=== PATIENT | female | born 1950 | race Caucasian/White ===

== ENCOUNTER → 2017-05-21 | Outpatient (CLI) | payer MEDICARE ==
--- NOTE | 2017-05-21 15:18 | RAD ---
DATE: 05/21/2017 EXAM: MAMMO NELSON SCREENING BILATERAL HISTORY: Routine screening COMPARISON: 02/06/2016 This study was interpreted with the benefit of Computerized Aided Detection (CAD). FINDINGS: Breast Density: SCATTERED The breast parenchyma shows scattered fibroglandular densities. Breast parenchyma level B. There are no dominant suspicious masses, suspicious microcalcifications or evidence of architectural distortion. IMPRESSION: Negative mammogram BI-RADS CATEGORY: 1 NEGATIVE RECOMMENDED FOLLOW-UP: 12M 12 MONTH FOLLOW-UP PQRS compliance statement: Patient information was entered into a reminder system with a target due date 05/21/2018 for the next mammogram. Mammography is a sensitive method for finding small breast cancers, but it does not detect them all and is not a substitute for careful clinical examination. A negative mammogram does not negate a clinically suspicious finding and should not result in delay in biopsying a clinically suspicious abnormality. "Our facility is accredited by the [employer] Mammography [employer]."
== END | disposition home or self-care (01) ==
LOC: MAMMO 09:21
PROVIDERS: ATTEND Nurse Practitioner Family
DX: Z12.31 Encounter for screening mammogram for malignant neoplasm of breast (principal)
CPT/HCPCS: 77063; G0202; 77067

== ENCOUNTER → 2018-04-07 | Outpatient (CLI) | payer MEDICARE ==
--- NOTE | 2018-04-07 14:40 | RAD ---
Lateral lower extremity superficial venous ultrasound for venous insufficiency, intermittent bilateral lower extremity swelling, left greater than right. TECHNIQUE AND FINDINGS: The right greater saphenous and lesser saphenous veins are patent and compressible. The origin of the right greater saphenous vein measures 9.5 mm. With Valsalva, there is 1.1 seconds of reflux in the proximal right greater saphenous vein. The right greater saphenous vein rapidly tapers to a diameter of 3 mm, and no reflux is seen at any of the remainder of the greater saphenous vein. The right lesser saphenous vein has a diameter of 2 mm proximally, and is normal with no evidence of venous insufficiency. The left greater saphenous vein measures 4 mm proximally and is notable for 0.3 seconds of reflux with Valsalva proximally, and no evidence of reflux throughout the remainder of its distribution. The left lesser saphenous vein has a diameter of 2 mm with no evidence of reflux. IMPRESSION: 1. Dilated proximal right greater saphenous vein with a diameter of 9 mm and reflux of 1.1 seconds. Electronically signed by: Stephen Wiggins MD (04/07/2018 2:37 PM) [id number]
== END | disposition home or self-care (01) ==
LOC: US 08:39
PROVIDERS: ATTEND Neuromusculoskeletal Medicine & OMM
DX: M79.89 Other specified soft tissue disorders (principal)
CPT/HCPCS: 93970

== ENCOUNTER → 2018-06-02 | Outpatient (CLI) | payer MEDICARE ==
--- NOTE | 2018-06-02 14:09 | CARD ---
MR#: [id number] Date of Study: 06/02/2018 Ordering Physician: UYEN FOWLER, Referring Physician: UYEN FOWLER Tech: Ora Nava RDCS APPROVED REPORT EXAM: Two-dimensional and M-mode echocardiogram with Doppler and color Doppler. Other Information Quality : Good INDICATION Peripheral Edema 2D DIMENSIONS RVDd2.5 (2.9-3.5cm)Left Atrium(2D)3.2 (1.6-4.0cm) IVSd1.1 (0.7-1.1cm)Aortic Root(2D)3.0 (2.0-3.7cm) LVDd5.3 (3.9-5.9cm)LVOT Diameter2.1 (1.8-2.4cm) PWd1.1 (0.7-1.1cm)LVDs3.3 (2.5-4.0cm) FS (%) 30.0 %SV90.2 ml LVEF(%)60.0 (>50%) Aortic Valve AoV Peak Lamine.166.7cm/sAoV VTI31.5cm AO Peak GR.11.1mmHgLVOT Peak Lamine.136.2cm/s LVOT VTI 28.90cmAO Mean GR.6mmHg TENZIN (VMAX)2.52kv0ZVL (VTI)3.19cm2 Mitral Valve MV E Ywnwgbgv77.5cm/sMV DECEL PRYI395ue MV A Wbeutoff890.4cm/sE/A Ratio0.9 Tricuspid Valve TR P. Rqglytlb473ry/sRAP LOSSXIXG3rrQb TR Peak Gr.56plPrLWRF13wrQl Pulmonary Vein S1 Fhpreeal17.4cm/sD2 Ezsrmjrb63.7cm/s LEFT VENTRICLE The left ventricle is normal size. There is normal left ventricular wall thickness. The left ventricu lar systolic function is normal. The Ejection Fraction is 55-60%. There is normal LV segmental wall m otion. RIGHT VENTRICLE The right ventricle is normal size. The right ventricular systolic function is normal. ATRIA The left atrium size is normal. The right atrium size is normal. The interatrial septum is intact wit h no evidence for an atrial septal defect or patent foramen ovale as noted on 2-D or Doppler imaging. AORTIC VALVE The aortic valve is calcified but opens well. Doppler and Color Flow revealed no significant aortic r egurgitation. There is no significant aortic valvular stenosis. MITRAL VALVE The mitral valve is normal in structure and function. There is no evidence of mitral valve prolapse. There is no mitral valve stenosis. Doppler and Color-flow revealed trace mitral regurgitation. TRICUSPID VALVE The tricuspid valve is normal in structure and function. Doppler and Color Flow revealed mild tricusp id regurgitation. The PA pressure was estimated at 38 mmHg. There is no tricuspid valve stenosis. PULMONIC VALVE The pulmonic valve is not well visualized. Doppler and Color Flow revealed mild pulmonic valvular reg urgitation. There is no pulmonic valvular stenosis. GREAT VESSELS The aortic root is normal in size. The ascending aorta is normal in size. The IVC is normal in size a nd collapses >50% with inspiration. PERICARDIAL EFFUSION There is no evidence of significant pericardial effusion. Critical Notification Critical Value: No <Conclusion> The left ventricular systolic function is normal. The Ejection Fraction is 55-60%. There is normal LV segmental wall motion. Trace mitral regurgitation. Mild tricuspid regurgitation. The PA pressure was estimated at 38 mmHg. There is no evidence of significant pericardial effusion. Signed by : Uyen Fowler, Electronically Approved : 06/02/2018 14:07:56
== END | disposition home or self-care (01) ==
LOC: ECHO 13:03
PROVIDERS: ATTEND Internal Medicine Cardiovascular Disease
DX: I07.1 Rheumatic tricuspid insufficiency (principal)
CPT/HCPCS: 93306

== ENCOUNTER → 2018-07-30 | Outpatient (CLI) | payer MEDICARE ==
[~2018-07-30] MED LIST: LEVO75TA5 PO; VENL37.5 PO
--- NOTE | 2018-07-30 12:30 | RAD ---
DATE: 07/30/2018 EXAM: MAMMO NELSON SCREENING BILATERAL HISTORY: Routine screening COMPARISON: 05/21/2017 This study was interpreted with the benefit of Computerized Aided Detection (CAD). Breast Density: SCATTERED The breast parenchyma shows scattered fibroglandular densities. Breast parenchyma level B. FINDINGS: 2-D and 3-D tomosynthesis imaging was performed in CC and MLO projections. No new or enlarging breast densities are seen. Benign type calcifications are again noted. No suspicious microcalcifications have developed. IMPRESSION: There is no mammographic evidence of malignancy either breast. BI-RADS CATEGORY: 2 BENIGN FINDING(S) RECOMMENDED FOLLOW-UP: 12M 12 MONTH FOLLOW-UP PQRS compliance statement: Patient information was entered into a reminder system with a target due date for the next mammogram. Mammography is a sensitive method for finding small breast cancers, but it does not detect them all and is not a substitute for careful clinical examination. A negative mammogram does not negate a clinically suspicious finding and should not result in delay in biopsying a clinically suspicious abnormality. "Our facility is accredited by the [employer] Mammography [employer]."
== END | disposition home or self-care (01) ==
LOC: MAMMO 09:38
PROVIDERS: ATTEND Registered Nurse
DX: Z12.31 Encounter for screening mammogram for malignant neoplasm of breast (principal)
CPT/HCPCS: 77063; 77067

== ENCOUNTER 2018-08-05 19:45 | Inpatient (IN) | payer MEDICARE ==
[~2018-08-05] VITALS: Ht 177.8 cm; Wt 110.0 kg
[2018-08-05] MEDS ORDERED: IV RINGERS SOLUTION,LACTATED 1,000 ML IV SCH (19:51)
--- NOTE | 2018-08-05 19:51 | ED.ADGEN ---
Past History Past Medical History: GERD Adult General Chief Complaint Chief Complaint ".. I'm having a lot of epigastric and right upper quadrant pain.... It is quite severe,.... I'm having some nausea. I have had a EGD they did not find any findings of gastritis or ulcer or significant reflux... But the pain is much worse tonight..." HPI HPI Patient is a 68 year old female who presents with above hx with complaints of, nausea, epigastric and right upper abdomen and flank pain. Patient has been having stools and passing gas. No recent history of bad food. No hx of renal stones. No history of trauma. No history immunosuppression. No history of travel. Patient has had complaints of GERD in past. Pt. did have a EDG by Dr. Schmidt with no significant pathology found. Patient's family does have a history of biliary stones with mother. Patient denies any family history or personal history of colitis. Patient has had a previous colonoscopy which was reportedly normal. Patient has had a laparotomy for infertility issues. Patient did have issues with irritable bowel problems at age 20. Patient last ate small meal at dinner. Patient normally follows with . Review of Systems Review of Systems Constitutional: Denies fever or chills [] Eyes: Denies change in visual acuity, redness, or eye pain [] HENT: Denies nasal congestion or sore throat [] Respiratory: Denies cough or shortness of breath [] Cardiovascular: No additional information not addressed in HPI [] GI: Epigastric and right upper quadrant abdominal pain,. Denies nausea, vomiting, bloody stools or diarrhea [] : Denies dysuria or hematuria [] Musculoskeletal: Denies back pain or joint pain [] Integument: Denies rash or skin lesions [] Neurologic: Denies headache, focal weakness or sensory changes [] Endocrine: Denies polyuria or polydipsia [] All other systems were reviewed and found to be within normal limits, except as documented in this note. Family History Family History Noncontributory Current Medications Current Medications Current Medications Medications (Trade) Dose Ordered Sig/Ezio Start Time Stop Time Status Last Admin Dose Admin Diphenhydramine HCl (Benadryl) 50 mg 1X ONCE 08/05/18 23:00 08/05/18 23:01 DC 08/05/18 23:21 50 MG Famotidine (Pepcid Vial) 20 mg 1X ONCE 08/05/18 20:50 08/05/18 20:51 DC 08/05/18 20:04 20 MG Info (Do NOT chart on this entry -- for MONITORING) 1 each PRN DAILY PRN 08/05/18 22:30 08/07/18 22:29 Iohexol (Omnipaque 240 Mg/ml) 50 ml 1X ONCE 08/05/18 22:30 08/05/18 22:31 DC 08/06/18 00:45 50 ML Iohexol (Omnipaque 300 Mg/ml) 75 ml 1X ONCE 08/05/18 22:30 08/05/18 22:31 DC Lactated Ringer's 1,000 ml @ 100 mls/hr Q10H 08/05/18 19:51 08/06/18 05:50 08/05/18 20:00 100 MLS/HR Magnesium Hydroxide (Milk Of Magnesia) 2,400 mg 1X ONCE 08/05/18 22:00 08/05/18 22:01 DC 08/05/18 23:17 2,400 MG Methylprednisolone Sodium Succinate (SOLU-Medrol 125MG VIAL) 125 mg 1X ONCE 08/05/18 23:00 08/05/18 23:01 DC 08/05/18 23:22 125 MG Morphine Sulfate (Morphine 10mg Syringe) 10 mg 1X ONCE 08/05/18 21:30 08/05/18 21:31 DC 08/05/18 21:39 10 MG Ondansetron HCl (Zofran) 8 mg 1X ONCE 08/05/18 20:50 08/05/18 20:51 DC 08/05/18 20:02 8 MG Allergies Allergies Allergies Coded Allergies Type Severity Reaction Last Updated Verified Iodine and Iodide Containing Produc Allergy Intermediate 08/05/18 Yes Physical Exam Physical Exam Constitutional: Moderately acute distress, non-toxic appearance. [] HENT: Normocephalic, atraumatic, bilateral external ears normal, oropharynx moist, no oral exudates, nose normal. [] Eyes: PERRLA, EOMI, conjunctiva normal, no discharge. [] Neck: Normal range of motion, no tenderness, supple, no stridor. [] Cardiovascular:Heart rate regular rhythm, no murmur [] Lungs & Thorax: Bilateral breath sounds clear to auscultation [] Abdomen: Bowel sounds normal, soft, epigastrium &right upper quadrant tenderness , no masses, distended, no pulsatile masses. [] Rebound to right upper quadrant. Patient declines rectal exam this time. Skin: Warm, dry, no erythema, no rash. [] Back: No tenderness, no CVA tenderness. [] Extremities: No tenderness, no cyanosis, no clubbing, ROM intact, no edema. [] No psoas sign or heeltap Neurologic: Alert and oriented X 3, normal motor function, normal sensory function, no focal deficits noted. [] Psychologic: Affect anxious, judgement normal, mood normal. [] Current Patient Data Vital Signs Vital Signs Date Time Temp Pulse Resp B/P (MAP) Pulse Ox O2 Delivery O2 Flow Rate FiO2 08/06/18 01:27 71 16 147/78 (101) 95 Room Air 08/05/18 20:10 98.3 Lab Results Laboratory Tests Test 08/05/18 20:20 08/05/18 21:20 White Blood Count 7.3 x10^3/uL (4.0-11.0) Red Blood Count 4.63 x10^6/uL (3.50-5.40) Hemoglobin 13.9 g/dL (12.0-15.5) Hematocrit 41.1 % (36.0-47.0) Mean Corpuscular Volume 89 fL (79-100) Mean Corpuscular Hemoglobin 30 pg (25-35) Mean Corpuscular Hemoglobin Concent 34 g/dL (31-37) Red Cell Distribution Width 13.7 % (11.5-14.5) Platelet Count 229 x10^3/uL (140-400) Neutrophils (%) (Auto) 72 % (31-73) Lymphocytes (%) (Auto) 17 % (24-48) L Monocytes (%) (Auto) 7 % (0-9) Eosinophils (%) (Auto) 2 % (0-3) Basophils (%) (Auto) 1 % (0-3) Neutrophils # (Auto) 5.3 x10^3uL (1.8-7.7) Lymphocytes # (Auto) 1.3 x10^3/uL (1.0-4.8) Monocytes # (Auto) 0.5 x10^3/uL (0.0-1.1) Eosinophils # (Auto) 0.2 x10^3/uL (0.0-0.7) Basophils # (Auto) 0.1 x10^3/uL (0.0-0.2) Prothrombin Time 9.3 SEC (9.4-11.4) L Prothrombin Time INR 0.9 (0.9-1.1) PTT 24 SEC (23-33) D-Dimer (Kristy) 0.85 mg/L (0.00-0.50) H Sodium Level 139 mmol/L (136-145) Potassium Level 4.0 mmol/L (3.5-5.1) Chloride Level 103 mmol/L (98-107) Carbon Dioxide Level 26 mmol/L (21-32) Anion Gap 10 (6-14) Blood Urea Nitrogen 17 mg/dL (7-20) Creatinine 1.0 mg/dL (0.6-1.0) Estimated GFR (Cockcroft-Gault) 55.1 Glucose Level 109 mg/dL (70-99) H Calcium Level 8.9 mg/dL (8.5-10.1) Magnesium Level 1.9 mg/dL (1.8-2.4) Total Bilirubin 0.7 mg/dL (0.2-1.0) Direct Bilirubin 0.1 mg/dL (0.0-0.2) Aspartate Amino Transferase (AST) 19 U/L (15-37) Alanine Aminotransferase (ALT) 22 U/L (14-59) Alkaline Phosphatase 90 U/L (46-116) Creatine Kinase 92 U/L (26-192) Troponin I Quantitative < 0.017 ng/mL (0-0.055) LW-Kzm-L-Type Natriuretic Peptide 145 pg/mL (0-124) H Total Protein 7.1 g/dL (6.4-8.2) Albumin 3.7 g/dL (3.4-5.0) Amylase Level 47 U/L (25-115) Lipase 154 U/L (73-393) Urine Collection Type Unknown Urine Color Straw Urine Clarity Clear Urine pH 8.0 Urine Specific [place] 1.015 Urine Protein Neg (NEG-TRACE) Urine Glucose (UA) Neg mg/dL (NEG) Urine Ketones (Stick) Neg mg/dL (NEG) Urine Blood Neg (NEG) Urine Nitrite Neg (NEG) Urine Bilirubin Neg (NEG) Urine Urobilinogen Dipstick 0.2 mg/dL (0.2 mg/dL) Urine Leukocyte Esterase Neg (NEG) Urine RBC 0 /HPF (0-2) Urine WBC Occ /HPF (0-4) Urine Squamous Epithelial Cells Occ /LPF Urine Bacteria Few /HPF (0-FEW) Urine Opiates Screen Neg (NEG) Urine Methadone Screen Neg (NEG) Urine Barbiturates Neg (NEG) Urine Phencyclidine Screen Neg (NEG) Urine Amphetamine/Methamphetamine Neg (NEG) Urine Benzodiazepines Screen Neg (NEG) Urine Cocaine Screen Neg (NEG) Urine Cannabinoids Screen Neg (NEG) Urine Ethyl Alcohol Neg (NEG) EKG EKG My interpretation of EKG shows a sinus rhythm at 89 bpm. Left axis. No findings acute STEMI of contralateral changes. [] Radiology/Procedures Radiology/Procedures My interpretation acute abdomen film shows no acute cardiopulmonary findings. No free air in the diaphragm. There is increased stool burden. There are a few isolated loops of small bowel. Does have scoliosis of lumbar spine. CT findings show distended bladder. Renal stones. There are mildly dilated loops of small bowel on the left with distal decompression consistent with possible early partial small bowel obstruction see formal report when available. [] Course & Med Decision Making Course & Med Decision Making Pertinent Labs and Imaging studies reviewed. (See chart for details) Pt. Admitted to Dr. Howell for further tx and evaluation. Will obtain biliary study- . NPO status for possible Small Bowel Obstruction. [] Final Impression Final Impression 1. Abdomen Pain[] 2.Partial small bowel obstruction 3. Biliary colic 4. Constipation 5. Elevated d-dimer 0.85 Dragon Disclaimer Dragon Disclaimer This electronic medical record was generated, in whole or in part, using a voice recognition dictation system. Dragon Disclaimer This chart was dictated in whole or in part using Voice Recognition software in a busy, high-work load, and often noisy Emergency Department environment. It may contain unintended and wholly unrecognized errors or omissions. Dragon Disclaimer This chart was dictated in whole or in part using Voice Recognition software in a busy, high-work load, and often noisy Emergency Department environment. It may contain unintended and wholly unrecognized errors or omissions. Discharge Summary Visit Information Final Diagnosis Problems Medical Problems: (1) Pain in the abdomen Status: Acute Brief Hospital Course Allergies Allergies Coded Allergies Type Severity Reaction Last Updated Verified Iodine and Iodide Containing Produc Allergy Intermediate 08/05/18 Yes Vital Signs Vital Signs Date Time Temp Pulse Resp B/P (MAP) Pulse Ox O2 Delivery O2 Flow Rate FiO2 08/06/18 01:27 71 16 147/78 (101) 95 Room Air 08/05/18 20:10 98.3 Lab Results Laboratory Tests Test 08/05/18 20:20 08/05/18 21:20 White Blood Count 7.3 x10^3/uL (4.0-11.0) Red Blood Count 4.63 x10^6/uL (3.50-5.40) Hemoglobin 13.9 g/dL (12.0-15.5) Hematocrit 41.1 % (36.0-47.0) Mean Corpuscular Volume 89 fL (79-100) Mean Corpuscular Hemoglobin 30 pg (25-35) Mean Corpuscular Hemoglobin Concent 34 g/dL (31-37) Red Cell Distribution Width 13.7 % (11.5-14.5) Platelet Count 229 x10^3/uL (140-400) Neutrophils (%) (Auto) 72 % (31-73) Lymphocytes (%) (Auto) 17 % (24-48) Monocytes (%) (Auto) 7 % (0-9) Eosinophils (%) (Auto) 2 % (0-3) Basophils (%) (Auto) 1 % (0-3) Neutrophils # (Auto) 5.3 x10^3uL (1.8-7.7) Lymphocytes # (Auto) 1.3 x10^3/uL (1.0-4.8) Monocytes # (Auto) 0.5 x10^3/uL (0.0-1.1) Eosinophils # (Auto) 0.2 x10^3/uL (0.0-0.7) Basophils # (Auto) 0.1 x10^3/uL (0.0-0.2) Prothrombin Time 9.3 SEC (9.4-11.4) Prothromb Time International Ratio 0.9 (0.9-1.1) Activated Partial Thromboplast Time 24 SEC (23-33) D-Dimer (Kristy) 0.85 mg/L (0.00-0.50) Sodium Level 139 mmol/L (136-145) Potassium Level 4.0 mmol/L (3.5-5.1) Chloride Level 103 mmol/L (98-107) Carbon Dioxide Level 26 mmol/L (21-32) Anion Gap 10 (6-14) Blood Urea Nitrogen 17 mg/dL (7-20) Creatinine 1.0 mg/dL (0.6-1.0) Estimated GFR (Cockcroft-Gault) 55.1 Glucose Level 109 mg/dL (70-99) Calcium Level 8.9 mg/dL (8.5-10.1) Magnesium Level 1.9 mg/dL (1.8-2.4) Total Bilirubin 0.7 mg/dL (0.2-1.0) Direct Bilirubin 0.1 mg/dL (0.0-0.2) Aspartate Amino Transf (AST/SGOT) 19 U/L (15-37) Alanine Aminotransferase (ALT/SGPT) 22 U/L (14-59) Alkaline Phosphatase 90 U/L (46-116) Creatine Kinase 92 U/L (26-192) Troponin I Quantitative < 0.017 ng/mL (0-0.055) XW-Hut-Z-Type Natriuretic Peptide 145 pg/mL (0-124) Total Protein 7.1 g/dL (6.4-8.2) Albumin 3.7 g/dL (3.4-5.0) Amylase Level 47 U/L (25-115) Lipase 154 U/L (73-393) Urine Collection Type Unknown Urine Color Straw Urine Clarity Clear Urine pH 8.0 Urine Specific [place] 1.015 Urine Protein Neg (NEG-TRACE) Urine Glucose (UA) Neg mg/dL (NEG) Urine Ketones (Stick) Neg mg/dL (NEG) Urine Blood Neg (NEG) Urine Nitrite Neg (NEG) Urine Bilirubin Neg (NEG) Urine Urobilinogen Dipstick 0.2 mg/dL (0.2 mg/dL) Urine Leukocyte Esterase Neg (NEG) Urine RBC 0 /HPF (0-2) Urine WBC Occ /HPF (0-4) Urine Squamous Epithelial Cells Occ /LPF Urine Bacteria Few /HPF (0-FEW) Urine Opiates Screen Neg (NEG) Urine Methadone Screen Neg (NEG) Urine Barbiturates Neg (NEG) Urine Phencyclidine Screen Neg (NEG) Urine Amphetamine/Methamphetamine Neg (NEG) Urine Benzodiazepines Screen Neg (NEG) Urine Cocaine Screen Neg (NEG) Urine Cannabinoids Screen Neg (NEG) Urine Ethyl Alcohol Neg (NEG) Brief Hospital Course Ms. Lujan is a 68 old female with Rt. upper quadrant pain. Admit possible Small Bowel Obstruction. Admitted Dr. Howell. Discharge Information Condition at Discharge: Improved, Stable Dischare Medications Current Medications Lactated Ringer's 1,000 ml @ 100 mls/hr Q10H IV Last administered on at 20:00; Admin Dose 100 MLS/HR; Start 08/05/18 at 19:51; Stop 08/06/18 at 05: 50 Ondansetron HCl (Zofran) 8 mg 1X ONCE IV Last administered on 08/05/18at 20:02 ; Admin Dose 8 MG; Start 08/05/18 at 20:50; Stop 08/05/18 at 20:51; Status DC Famotidine (Pepcid Vial) 20 mg 1X ONCE IVP Last administered on 08/05/18at 20: 04; Admin Dose 20 MG; Start 08/05/18 at 20:50; Stop 08/05/18 at 20:51; Status DC Morphine Sulfate (Morphine 10mg Syringe) 10 mg 1X ONCE SQ Last administered on 08/05/18at 21:39; Admin Dose 10 MG; Start 08/05/18 at 21:30; Stop 08/05/18 at 21:31; Status DC Magnesium Hydroxide (Milk Of Magnesia) 2,400 mg 1X ONCE PO Last administered on 08/05/18at 23:17; Admin Dose 2,400 MG; Start 08/05/18 at 22:00; Stop 08/05/18 at 22:01; Status DC Iohexol (Omnipaque 240 Mg/ml) 50 ml STK-MED ONCE .ROUTE ; Start 08/05/18 at 22: 17; Stop 08/05/18 at 22:18; Status DC Iohexol (Omnipaque 300 Mg/ml) 75 ml 1X ONCE IV ; Start 08/05/18 at 22:30; Stop 08/05/18 at 22:31; Status DC Iohexol (Omnipaque 240 Mg/ml) 50 ml 1X ONCE PO Last administered on 08/06/18at 00:45; Admin Dose 50 ML; Start 08/05/18 at 22:30; Stop 08/05/18 at 22:31; Status DC Info (Do NOT chart on this entry -- for MONITORING) 1 each PRN DAILY PRN MC SEE COMMENTS; Start 08/05/18 at 22:30; Stop 08/07/18 at 22:29 Methylprednisolone Sodium Succinate (SOLU-Medrol 125MG VIAL) 125 mg 1X ONCE IV Last administered on 08/05/18at 23:22; Admin Dose 125 MG; Start 08/05/18 at 23: 00; Stop 08/05/18 at 23:01; Status DC Diphenhydramine HCl (Benadryl) 50 mg 1X ONCE IVP Last administered on at 23:21; Admin Dose 50 MG; Start 08/05/18 at 23:00; Stop 08/05/18 at 23:01; Status DC Discharge Summary Visit Information Final Diagnosis Problems Medical Problems: (1) Pain in the abdomen Status: Acute Brief Hospital Course Allergies Allergies Coded Allergies Type Severity Reaction Last Updated Verified Iodine and Iodide Containing Produc Allergy Intermediate 08/05/18 Yes Vital Signs Vital Signs Date Time Temp Pulse Resp B/P (MAP) Pulse Ox O2 Delivery O2 Flow Rate FiO2 08/06/18 01:27 71 16 147/78 (101) 95 Room Air 08/05/18 20:10 98.3 Lab Results Laboratory Tests Test 08/05/18 20:20 08/05/18 21:20 White Blood Count 7.3 x10^3/uL (4.0-11.0) Red Blood Count 4.63 x10^6/uL (3.50-5.40) Hemoglobin 13.9 g/dL (12.0-15.5) Hematocrit 41.1 % (36.0-47.0) Mean Corpuscular Volume 89 fL (79-100) Mean Corpuscular Hemoglobin 30 pg (25-35) Mean Corpuscular Hemoglobin Concent 34 g/dL (31-37) Red Cell Distribution Width 13.7 % (11.5-14.5) Platelet Count 229 x10^3/uL (140-400) Neutrophils (%) (Auto) 72 % (31-73) Lymphocytes (%) (Auto) 17 % (24-48) Monocytes (%) (Auto) 7 % (0-9) Eosinophils (%) (Auto) 2 % (0-3) Basophils (%) (Auto) 1 % (0-3) Neutrophils # (Auto) 5.3 x10^3uL (1.8-7.7) Lymphocytes # (Auto) 1.3 x10^3/uL (1.0-4.8) Monocytes # (Auto) 0.5 x10^3/uL (0.0-1.1) Eosinophils # (Auto) 0.2 x10^3/uL (0.0-0.7) Basophils # (Auto) 0.1 x10^3/uL (0.0-0.2) Prothrombin Time 9.3 SEC (9.4-11.4) Prothromb Time International Ratio 0.9 (0.9-1.1) Activated Partial Thromboplast Time 24 SEC (23-33) D-Dimer (Kristy) 0.85 mg/L (0.00-0.50) Sodium Level 139 mmol/L (136-145) Potassium Level 4.0 mmol/L (3.5-5.1) Chloride Level 103 mmol/L (98-107) Carbon Dioxide Level 26 mmol/L (21-32) Anion Gap 10 (6-14) Blood Urea Nitrogen 17 mg/dL (7-20) Creatinine 1.0 mg/dL (0.6-1.0) Estimated GFR (Cockcroft-Gault) 55.1 Glucose Level 109 mg/dL (70-99) Calcium Level 8.9 mg/dL (8.5-10.1) Magnesium Level 1.9 mg/dL (1.8-2.4) Total Bilirubin 0.7 mg/dL (0.2-1.0) Direct Bilirubin 0.1 mg/dL (0.0-0.2) Aspartate Amino Transf (AST/SGOT) 19 U/L (15-37) Alanine Aminotransferase (ALT/SGPT) 22 U/L (14-59) Alkaline Phosphatase 90 U/L (46-116) Creatine Kinase 92 U/L (26-192) Troponin I Quantitative < 0.017 ng/mL (0-0.055) GT-Qme-R-Type Natriuretic Peptide 145 pg/mL (0-124) Total Protein 7.1 g/dL (6.4-8.2) Albumin 3.7 g/dL (3.4-5.0) Amylase Level 47 U/L (25-115) Lipase 154 U/L (73-393) Urine Collection Type Unknown Urine Color Straw Urine Clarity Clear Urine pH 8.0 Urine Specific [place] 1.015 Urine Protein Neg (NEG-TRACE) Urine Glucose (UA) Neg mg/dL (NEG) Urine Ketones (Stick) Neg mg/dL (NEG) Urine Blood Neg (NEG) Urine Nitrite Neg (NEG) Urine Bilirubin Neg (NEG) Urine Urobilinogen Dipstick 0.2 mg/dL (0.2 mg/dL) Urine Leukocyte Esterase Neg (NEG) Urine RBC 0 /HPF (0-2) Urine WBC Occ /HPF (0-4) Urine Squamous Epithelial Cells Occ /LPF Urine Bacteria Few /HPF (0-FEW) Urine Opiates Screen Neg (NEG) Urine Methadone Screen Neg (NEG) Urine Barbiturates Neg (NEG) Urine Phencyclidine Screen Neg (NEG) Urine Amphetamine/Methamphetamine Neg (NEG) Urine Benzodiazepines Screen Neg (NEG) Urine Cocaine Screen Neg (NEG) Urine Cannabinoids Screen Neg (NEG) Urine Ethyl Alcohol Neg (NEG) Brief Hospital Course Ms. Lujan is a 68 old [sex] who presented with [ ] Discharge Information Dischare Medications Current Medications Lactated Ringer's 1,000 ml @ 100 mls/hr Q10H IV Last administered on at 20:00; Admin Dose 100 MLS/HR; Start 08/05/18 at 19:51; Stop 08/06/18 at 05: 50 Ondansetron HCl (Zofran) 8 mg 1X ONCE IV Last administered on 08/05/18at 20:02 ; Admin Dose 8 MG; Start 08/05/18 at 20:50; Stop 08/05/18 at 20:51; Status DC Famotidine (Pepcid Vial) 20 mg 1X ONCE IVP Last administered on 08/05/18at 20: 04; Admin Dose 20 MG; Start 08/05/18 at 20:50; Stop 08/05/18 at 20:51; Status DC Morphine Sulfate (Morphine 10mg Syringe) 10 mg 1X ONCE SQ Last administered on 08/05/18at 21:39; Admin Dose 10 MG; Start 08/05/18 at 21:30; Stop 08/05/18 at 21:31; Status DC Magnesium Hydroxide (Milk Of Magnesia) 2,400 mg 1X ONCE PO Last administered on 08/05/18at 23:17; Admin Dose 2,400 MG; Start 08/05/18 at 22:00; Stop 08/05/18 at 22:01; Status DC Iohexol (Omnipaque 240 Mg/ml) 50 ml STK-MED ONCE .ROUTE ; Start 08/05/18 at 22: 17; Stop 08/05/18 at 22:18; Status DC Iohexol (Omnipaque 300 Mg/ml) 75 ml 1X ONCE IV ; Start 08/05/18 at 22:30; Stop 08/05/18 at 22:31; Status DC Iohexol (Omnipaque 240 Mg/ml) 50 ml 1X ONCE PO Last administered on 08/06/18at 00:45; Admin Dose 50 ML; Start 08/05/18 at 22:30; Stop 08/05/18 at 22:31; Status DC Info (Do NOT chart on this entry -- for MONITORING) 1 each PRN DAILY PRN MC SEE COMMENTS; Start 08/05/18 at 22:30; Stop 08/07/18 at 22:29 Methylprednisolone Sodium Succinate (SOLU-Medrol 125MG VIAL) 125 mg 1X ONCE IV Last administered on 08/05/18at 23:22; Admin Dose 125 MG; Start 08/05/18 at 23: 00; Stop 08/05/18 at 23:01; Status DC Diphenhydramine HCl (Benadryl) 50 mg 1X ONCE IVP Last administered on at 23:21; Admin Dose 50 MG; Start 08/05/18 at 23:00; Stop 08/05/18 at 23:01; Status DC FADI CHAPMAN MD Aug 05, 2018 19:51
[2018-08-05 20:33] LABS: BASO # 0.1 x10^3/uL (0.0-0.2); BASO % 1 % (0-3); EOS # 0.2 x10^3/uL (0.0-0.7); EOS % 2 % (0-3); HEMATOCRIT 41.1 % (36.0-47.0); HEMOGLOBIN 13.9 g/dL (12.0-15.5); LYMPH # 1.3 x10^3/uL (1.0-4.8); LYMPH % 17 % (24-48); MEAN CORPUSCULAR HEMOGLOBIN 30 pg (25-35); MEAN CORPUSCULAR HGB CONC 34 g/dL (31-37); MEAN CORPUSCULAR VOLUME 89 fL (79-100); MONO # 0.5 x10^3/uL (0.0-1.1); MONO % 7 % (0-9); NEUT # 5.3 x10^3uL (1.8-7.7); NEUT % 72 % (31-73); PLATELET COUNT 229 x10^3/uL (140-400); RED BLOOD COUNT 4.63 x10^6/uL (3.50-5.40); RED CELL DISTRIBUTION WIDTH 13.7 % (11.5-14.5); WHITE BLOOD COUNT 7.3 x10^3/uL (4.0-11.0)
[2018-08-05] MEDS ORDERED: ONDANSETRON PF 4 MG/2 ML VIAL. IV ONE (20:50)
[2018-08-05] MEDS ORDERED: FAMOTIDINE 20 MG/2 ML VIAL IVP ONE (20:50)
[2018-08-05 20:54] LABS: ALBUMIN 3.7 g/dL (3.4-5.0); CALCIUM 8.9 mg/dL (8.5-10.1); DIRECT BILIRUBIN 0.1 mg/dL (0.0-0.2); GFR 55.1; MAGNESIUM 1.9 mg/dL (1.8-2.4); TOTAL BILIRUBIN 0.7 mg/dL (0.2-1.0); TOTAL PROTEIN 7.1 g/dL (6.4-8.2)
--- NOTE | 2018-08-05 21:16 | RAD ---
Acute Abdominal Series: 08/05/2018 8:55 PM Reason for study: Umbilical abdominal pain. Comparison studies: None available. Technique: Frontal view of the chest was obtained along with supine and upright views of the abdomen. Findings: Nonobstructive bowel gas pattern. No air fluid levels or free air. Moderate amount of stool is noted within the colon. Calcification in the right hemipelvis measures 12 mm and is most suggestive of a phlebolith. The lungs are clear without acute consolidative opacity. No pleural effusion or pneumothorax. The cardiac and mediastinal contours are normal. Levoconvex scoliosis of the lumbar spine is identified with right lateral listhesis of L2 on L3 and the left lateral listhesis of L3 on L4. IMPRESSION: 1. Nonobstructed bowel gas pattern. Moderate amount of stool is noted throughout the colon. 2. No acute cardiopulmonary findings. Electronically signed by: Breanna Alegria MD (08/05/2018 9:13 PM) [facility]
[2018-08-05] MEDS ORDERED: MORPHINE SULFATE 10 MG/ML SYRINGE. SQ ONE (21:30)
[2018-08-05 21:38] LABS: AMPHETAMINE/METHAMPHETAMINE NEG (NEG); BARBITURATES NEG (NEG); BENZODIAZEPINES NEG (NEG); CANNABINOIDS NEG (NEG); COCAINE NEG (NEG); METHADONE NEG (NEG); OPIATES NEG (NEG); PHENCYCLIDINE NEG (NEG)
[2018-08-05 21:41] LABS: BILIRUBIN,URINE NEG (NEG); CLARITY,URINE CLEAR; COLOR,URINE STRAW; GLUCOSE,URINE NEG (NEG); NITRITE,URINE NEG (NEG); UROBILINOGEN,URINE 0.2 mg/dL (0.2 mg/dL)
[2018-08-05 21:42] LABS: BACTERIA,URINE FEW /HPF (0-FEW); RBC,URINE 0 /HPF (0-2); SQUAMOUS EPITHELIAL CELL,UR OCC /LPF; WBC,URINE OCC /HPF (0-4)
[2018-08-05] MEDS ORDERED: MAGNESIUM HYDROXIDE 2,400 MG/30 ML ORAL.SUSP. PO ONE (22:00)
[2018-08-05] MEDS ORDERED: IOHEXOL 240 MG/ML 50ML VIAL. ONE (22:17)
[2018-08-05] MEDS ORDERED: IOHEXOL 240 MG/ML 50ML VIAL. PO ONE (22:30)
[2018-08-05] MEDS ORDERED: IOHEXOL 300 MG/ML 75 ML VIAL. IV ONE (22:30)
[2018-08-05] MEDS ORDERED: CONTRAST GIVEN MC PRN (22:30)
[2018-08-05] MEDS ORDERED: methylPREDNISolone SOD SUCC PF 125 MG/2 ML VIAL. IV ONE (23:00)
[2018-08-05] MEDS ORDERED: diphenhydrAMINE 50 MG/ML VIAL IVP ONE (23:00)
--- NOTE | 2018-08-06 01:20 | RAD ---
INDICATION: Umbillical abdominal pain, right sided flank pain, nausea. COMPARISON: None. TECHNIQUE: Axial CT images obtained through the abdomen and pelvis with oral and without intravenous contrast.. One or more of the following individualized dose reduction techniques were utilized for this examination: 1. Automated exposure control; 2. Adjustment of the mA and/or kV according to patient size; 3. Use of iterative reconstruction technique. FINDINGS: Calcified plaque scattered throughout the vasculature. No intrahepatic bile duct dilation. Gallbladder somewhat distended at time of exam. No peripancreatic fluid collection. Spleen unremarkable. Urinary bladder is distended at time of exam. Prominence of the bilateral extrarenal pelvis. Low-density lesion at lower pole of the right kidney which is likely cystic. Calcifications right adnexa. Colonic diverticulosis. Suspected appendix does not appear inflamed. The left side of the abdomen there is a focally dilated loop of small bowel identified measuring up to 28 mm with some fecal is aeration. Osseous excrescence off right inferior pubic ramus. Degenerative changes of spine with multilevel central canal and neural foraminal stenosis. Scoliotic curvature of spine. IMPRESSION: 1. The urinary bladder is distended with prominence of bilateral extrarenal pelvis. This could be from the patient not urinating recently but would correlate with urinary function to ensure that there is not a pathologic cause such as partial bladder outlet obstruction. 2. There are couple of mildly dilated loops of small bowel on the left side of the abdomen with distal decompression. This is a mild finding and could be secondary to the phase of peristalsis however very early partial small bowel obstruction is not excluded. 3. Calcification in right adnexa measuring up to about 12 mm. This is nonspecific in nature and could be secondary to a calcification within the soft tissue but alternative causes such as calcified portion of a small teratoma not excluded. Electronically signed by: Norris Nieves MD (08/06/2018 1:17 AM) [id number]
[2018-08-06] MEDS ORDERED: ONDANSETRON PF 4 MG/2 ML VIAL. IV PRN (01:45)
[2018-08-06] MEDS ORDERED: ACETAMINOPHEN 325 MG TABLET PO PRN (01:45)
[2018-08-06 03:19] VITALS: BP 127/84
--- NOTE | 2018-08-06 03:35 | NUR ---
Pt.just arrived from ED via gurney w/ abd.pain,possible partial SBO, biliary colic, constipation, and elevated d-dimer. She is A/O x4 and will make needs known. Grand-daughters @ [facility].
[2018-08-06] MEDS ORDERED: LEVO75TA5 PO (03:49)
[2018-08-06] MEDS ORDERED: VENL37.5 PO (03:49)
[2018-08-06 05:24] VITALS: BP 124/76
[2018-08-06] MEDS ORDERED: LEVOTHYROXINE 75 MCG TABLET PO SCH (07:30)
[2018-08-06] MEDS ORDERED: FAMOTIDINE 20 MG TABLET PO SCH (09:00)
[2018-08-06] MEDS ORDERED: IV RINGERS SOLUTION,LACTATED 1,000 ML IV SCH (09:00)
[2018-08-06] MEDS ORDERED: VENLAFAXINE XR 37.5 MG CAP.ER.24H. PO SCH (09:00)
[2018-08-06] MEDS ORDERED: MORPHINE SULFATE 4 MG/ML DISP.SYRIN. IV ONE (10:15)
[2018-08-06 11:20] VITALS: BP 134/84
--- NOTE | 2018-08-06 11:36 | RAD ---
Radionuclide hepatobiliary scan, 08/06/2018: HISTORY: Abdominal pain Following IV injection of 5.5 mCi of technetium 99m Choletec there was prompt uptake of the radionuclide from the blood stream by the liver. Activity is present in the bile ducts at 15 minutes and in the small bowel at 30 minutes. No gallbladder activity was identified over the first hour. The patient was injected with 4 mg of morphine IV and additional imaging performed. No gallbladder activity was evident on these delayed images. IMPRESSION: Nonvisualization of the gallbladder suggesting cystic duct obstruction, compatible with acute cholecystitis. Electronically signed by: Sanjay Lentz MD (08/06/2018 11:33 AM) [facility]
--- NOTE | 2018-08-06 11:36 | EKG ---
[address] [address] Test Date: 2018-08-05 Test Time: 20:16:22 Pat Name: ANGELES METCALF Department: Room: 122 A Gender: F Director Of Materials: : 1950 Requested By: FADI CHAPMAN Order Number: [id number] Reading MD: Carlos Turner Measurements Intervals Wesley Rate: 59 P: 26 TX: 172 QRS: -7 QRSD: 88 T: 27 QT: 422 QTc: 418 Interpretive Statements SINUS RHYTHM LEFTWARD AXIS Electronically Signed On 08-10-2018 10:39:47 CLINICAL DATA MANAGEMENT DIRECTOR by Carlos Turner
--- NOTE | 2018-08-06 16:02 | SSS ---
ADMIT DATE: 08/06/2018 HISTORY OF PRESENT ILLNESS: The patient is a 68-year-old female patient who came to the Emergency Room complaining of epigastric and right upper quadrant pain that is quite severe. She has some nausea. She apparently had an esophagogastroduodenoscopy and did not find any gastritis or ulcer or significant reflux, but the pain has worsened and she came to the Emergency Room with the above complaints. She did have stools and passing gas. No recent history of bad food. No history of renal stones. No history of trauma or immunosuppression. She has not had any recent travel. The patient has had complaints of gastroesophageal reflux disease in the past and has previous history of colitis, has previous colonoscopy, which was reported to be normal. She has had laparotomy for infertility issues. The patient did have issues with irritable bowel syndrome at the age of 20. The patient was extensively investigated in the Emergency Room. Her white cell count was normal. Her chemistry was also unremarkable. Her D-dimer was slightly elevated. Urinalysis was essentially unremarkable and toxic screen was negative. She has had acute abdomen series, which showed nonobstructive bowel gas pattern, moderate amount of stool is noted throughout the colon, no acute cardiopulmonary finding. CT scan of the abdomen and pelvis showed that the patient has calcified plaque scattered throughout the vasculature. No intrahepatic bile duct dilatation, gallbladder somewhat distended at the time of exam. No peripancreatic fluid collection. Spleen is unremarkable. Urinary bladder is distended at the time of exam with prominence of the bilateral external pelvis, low density lesion at the lower pole of the right kidney which is likely a cystic calcification of the right adnexa, colonic diverticulosis suspected, appendix does not appear inflamed. The left side of the abdomen, there is a focally distended loop of small bowel identified measuring up to 28 mm with some fecal osseous excrescence of right inferior pubic ramus, degenerative changes of the spine with multiple central canal. The patient underwent a HIDA scan, which showed that there is nonvisualization of the gallbladder suggesting cystic duct obstruction compatible with acute cholecystitis and decision was made to transfer her to [facility] to consult the surgical team. PAST MEDICAL HISTORY: Significant for hyperlipidemia, hypothyroidism, bronchial asthma, and osteoarthritis. PAST SURGICAL HISTORY: Significant for left total knee arthroplasty and left foot surgery. ALLERGIES: She is allergic to IODINE CONTAINING PRODUCT. MEDICATIONS: She is currently on the following medications: Venlafaxine 37.5 mg once a day and levothyroxine sodium 75 mcg once a day. FAMILY HISTORY: She has a family history significant for the fact that the mother has breast cancer and still alive at the age of 94. Father at age of 93. She has 3 brothers and 1 sister. SOCIAL HISTORY: She is , has 1 son. She does not smoke, but drinks alcohol occasionally. She is currently retired. PHYSICAL EXAMINATION: GENERAL: When I examined her this afternoon, she looked well and was clearly in no apparent respiratory distress. No pallor, jaundice, cyanosis, or thyromegaly. No jugular venous distention. No limb edema. VITAL SIGNS: Her heart rate was 64, blood pressure 134/84, temperature was 97.7, respiratory rate 20, and oxygen saturation was 99% on 2 liters of oxygen. HEAD, EYES, EARS, NOSE AND THROAT: Showed normocephalic, atraumatic. NECK: Supple. HEART: Showed normal first and second heart sounds. No gallop, rub or murmur. CHEST: Clear to auscultation. No crepitation or rhonchi. ABDOMEN: She has tenderness mostly in the right epigastric and right upper quadrant. There is no guarding or rigidity. No organomegaly. All hernial orifices intact. Bowel sounds normal. NEUROLOGIC: She was awake, alert, responding appropriately. All cranial nerves intact. She moves extremities without difficulty. She ambulates without assistance or assistive devices. LABORATORY DATA: Her white cell count was 7300, hemoglobin 13.9, hematocrit 41, MCV 89 and platelet count 229,000. Her chemistry showed a serum sodium 139, potassium 4, chloride 103, bicarbonate 26, anion gap of 10, BUN 17, creatinine 1, estimated GFR was 109 mg/dL. Calcium was 8.9, magnesium was 1.9. Total bilirubin, AST, ALT, alkaline phosphatase were normal. Total protein was 7.1, albumin was 3.7, and lipase 154. TSH was normal at 2.969. Her prothrombin time was 9.3, INR was 0.9, aPTT was 24, and D-dimer was 0.85. Urinalysis was essentially unremarkable. Toxic screen was negative. Her acute abdomen series was unremarkable. CT scan of the abdomen and pelvis showed the gallbladder was distended. Her HIDA scan showed that there is nonvisualization of the gallbladder suggesting cystic duct obstruction compatible with acute cholecystitis. The patient will be kept n.p.o., transferred to [facility]. Continue with IV antibiotic, antiemetic, and pain medication. We will consult the surgical team for cholecystectomy. TANYA ISLAS MD DR: LEVON/maribeth JOB#: [id number] / [id number]
[2018-08-06 16:17] VITALS: BP 128/73
[2018-08-06] MEDS ORDERED: POTASSIUM CL 20MEQ D5-0.45NACL 1,000 ML IV SCH (16:30)
--- NOTE | 2018-08-06 18:49 | NUR ---
Discharge Note: ANGELES METCALF [address] Discharge instructions and discharge home medications reviewed with MALIK Busch RN, and a copy given. All questions have been answered and understanding verbalized. The following instructions and handouts were given: medications, labs, imaging, activity, diet, and plan of care. Discontinued lines and drains: IV left in place for use at [facility]. [facility].
== END 2018-08-06 18:50 | disposition short-term general hospital (02) | DRG 445 ==
LOC: ER 19:45 → 1 SOUTH 08-06 01:30
PROVIDERS: ADMIT Internal Medicine; ATTEND Internal Medicine
DX: K81.0 Acute cholecystitis (principal); K82.0 Obstruction of gallbladder; E78.5 Hyperlipidemia, unspecified; J45.909 Unspecified asthma, uncomplicated; E03.9 Hypothyroidism, unspecified; K21.9 Gastro-esophageal reflux disease without esophagitis; K57.30 Diverticulosis of large intestine without perforation or abscess without bleeding; Z96.652 Presence of left artificial knee joint; M19.90 Unspecified osteoarthritis, unspecified site; Z79.899 Other long term (current) drug therapy; Z91.041 Radiographic dye allergy status; Z80.3 Family history of malignant neoplasm of breast
CPT/HCPCS: 36415; 74022; 74176; 78227; 80048; 80076; 80307; 81001; 82150; 82550; 83690; 83735; 83880; 84443; 84484; 85025; 85379; 85610; 85730; 93005; 96361; 96374; 96375; A9537; J1200; J2270; J2405; J2930; J3490; J7120; Q9966; 99285-25

== ENCOUNTER → 2019-08-23 | Outpatient (CLI) | payer MEDICARE ==
--- NOTE | 2019-08-23 16:59 | RAD ---
CHEST PA LATERAL History: Shortness of breath Comparison: None. Findings: Frontal and lateral views of the chest were obtained. The cardiomediastinal silhouette is normal. Pulmonary vasculature is normal. The lungs are clear. No pleural effusion or pneumothorax is seen. There is no acute bone abnormality. Surgical clips involve the upper abdomen. IMPRESSION: No acute cardiopulmonary process. Electronically signed by: Dawit Cota MD (08/23/2019 4:57 PM) [id number]
== END | disposition home or self-care (01) ==
LOC: PMG 13:46
PROVIDERS: ATTEND Registered Nurse
DX: R06.02 Shortness of breath (principal)
CPT/HCPCS: 71046

== ENCOUNTER → 2019-08-30 | Outpatient (CLI) | payer MEDICARE ==
[~2019-08-30] MED LIST changes: +IOHEXOL 350 MG/ML 100 ML VIAL. IV ONE
--- NOTE | 2019-08-30 09:01 | RAD ---
CT angiography chest with contrast PQRS statement: CT scans at this facility use dose reduction including either automated exposure control, iterative reconstructions, and /or weight based radiation dosing via mA and kV modification when appropriate to reduce radiation dose to as low as reasonably achievable. TECHNIQUE: CT imaging the chest with 3-D MIP reconstructions of the pulmonary arteries with 100 mL Omnipaque 350 intravenous contrast. HISTORY: Elevated d-dimer, shortness of breath, history of pulmonary emboli in the past. FINDINGS: Calcified plaque thoracic aorta and left coronary artery. Heart size normal. Esophagus unremarkable. No pulmonary artery emboli. No large adenopathy in the chest. There is bronchial wall thickening with luminal narrowing may be bronchitis. Mild mosaic attenuation with heterogeneous areas of groundglass density and lucency throughout both lungs. No consolidative opacity. No pulmonary nodules. No pleural effusions. Bones are unremarkable. IMPRESSION: 1. No pulmonary artery emboli. 2. Bronchitis with bronchial wall thickening with luminal narrowing. 3. Diffuse pulmonary mosaic attenuation with intermixed regions of pulmonary groundglass opacity and pulmonary lucency, could indicate small airways disease with areas of air trapping from active asthma or bronchiolitis, versus groundglass opacities from and infectious or inflammatory pneumonitis. Electronically signed by: Jey Sánchez MD (08/30/2019 8:57 AM) [id number]
== END ==
LOC: CT 08:01
PROVIDERS: ATTEND Registered Nurse
DX: J40 Bronchitis, not specified as acute or chronic (principal); R79.1 Abnormal coagulation profile; Z86.718 Personal history of other venous thrombosis and embolism
CPT/HCPCS: 71275; Q9967